=== PATIENT | female | born 1990 | race African-American/Black ===

== ENCOUNTER 2017-04-02 22:29 | Emergency (ER) | payer OTHER ==
[~2017-04-02] VITALS: Ht 172.7 cm; Wt 67.6 kg
[~2017-04-02 22:29] MED LIST: CIPROFLOXACIN500 M1 PO; CIPROFLOXACIN500 M3 PO; CLARINEX-D 121 EACH PO; DECONGESTANT NA15 ML NS; DEPO-PROVERA; HYDROCORTISONE30 G9 TOP; IBUPROFEN 800800 MG PO; MACROBID 100 M100 M1 PO; NOHOMEMEDICATIONS; PRENATAL COMPL1 EACH PO; PRENATAL PO; PYRIDIUM200 MG PO; ZOFRAN ODT4 MG PO; ZPAK PO
[2017-04-02 23:37] VITALS: BP 127/57
== END 2017-04-03 00:02 | disposition home or self-care (01) ==
LOC: ER 22:29
DX: J04.0 Acute laryngitis (principal); J02.9 Acute pharyngitis, unspecified; Z88.2 Allergy status to sulfonamides

== ENCOUNTER 2017-08-10 12:04 | Emergency (ER) | payer OTHER ==
[~2017-08-10] VITALS: Ht 172.7 cm; Wt 63.5 kg
[2017-08-10 12:28] LABS: URINE BILIRUBIN NEGATIVE (Negative); URINE BLOOD NEGATIVE (Negative); URINE COLOR YELLOW; URINE GLUCOSE-RANDOM* NEGATIVE (Negative); URINE KETONES 2+ (Negative); URINE NITRITE NEGATIVE (Negative); URINE PROTEIN (DIPSTICK) NEGATIVE (Negative)
[2017-08-10] MEDS ORDERED: VITAFOL-OB+DHA1 EACH PO (12:58)
[2017-08-10] MEDS ORDERED: ZPAK PO (12:58)
[2017-08-10 13:01] VITALS: BP 118/67
== END 2017-08-10 13:01 | disposition home or self-care (01) ==
LOC: ER 12:04
PROVIDERS: Emergency Medicine
DX: J18.9 Pneumonia, unspecified organism (principal); M79.1 Myalgia; Z88.2 Allergy status to sulfonamides

== ENCOUNTER 2018-05-12 23:27 | Emergency (ER) | payer OTHER ==
[~2018-05-12] VITALS: Ht 172.7 cm; Wt 65.8 kg
[~2018-05-12 23:27] MED LIST changes: +KEFLEX500 M1 PO; +PHENAZOPYRIDIN200 M2 PO; +VITAFOL-OB+DHA1 EACH PO
[2018-05-12] MEDS ORDERED: BENADRYL25 MG PO (23:38)
[2018-05-13 01:13] VITALS: BP 106/70
== END 2018-05-13 01:15 | disposition home or self-care (01) ==
LOC: ER 23:27
DX: L29.9 Pruritus, unspecified (principal); Z88.2 Allergy status to sulfonamides; Z88.8 Allergy status to other drugs, medicaments and biological substances